=== PATIENT | male | born 1960 | race African-American/Black ===

== ENCOUNTER 2019-02-08 17:26 | Inpatient (IN) ==
[2019-02-08 18:37] LABS: Basophils % 0.6 % (0.0-0.8); Eosinophils # 0.1 10*3/uL (0.0-0.87); Eosinophils % 2.5 % (0.00-10.9); Hematocrit 28.2 VOL% (42.0-52.0); Hemoglobin 9.6 GM/DL (14.0-18.0); Immature Granulocytes % 0.2 %; Immature Granulocytes Absolute 0.01 #; Lymphocytes # 1.5 10*3/uL (1.4-4.0); Lymphocytes % 30.8 % (21.2-54.2); Mean Corpuscular Volume 84.4 FL (87-102); Mean Platelet Volume 11.2 FL (9.6-12.0); Monocytes % 10.8 % (1.7-12.7); Neutrophils % 55.1 % (38.7-73.9); Platelet Count 179 T/CUMM (130-400); Red Blood Count 3.34 MC/CUMM (3.8-5.5); Red Cell Distribution Width 11.6 % (9.3-17.3); White Blood Count 4.8 T/CUMM (4-12)
[2019-02-08 19:00] LABS: Calcium 8.9 MG/DL (8.5-10.1); Osmolality,Calculated 293.6 MOS/KG (273-304)
[2019-02-08] MEDS ORDERED: KETOROLAC 30 MG/1 ML VIAL IM STA (19:14)
[2019-02-08] MEDS ORDERED: ONDANSETRON 4 MG/2 ML VIAL IV PRN (22:16)
[2019-02-08] MEDS ORDERED: ACETAMINOPHEN 325 MG TABLET PO PRN (22:16)
[2019-02-08] MEDS ORDERED: GLUCAGON 1 MG VIAL IM PRN (22:16)
[2019-02-08] MEDS ORDERED: DEXTROSE 50% 25 GM/50 ML VIAL IV PRN (22:16)
[2019-02-08] MEDS ORDERED: ENOXAPARIN 40 MG/0.4 ML SYRINGE SUBCUT SCH (22:30)
[2019-02-09 04:23] LABS: Basophils % 0.7 % (0.0-0.8); Eosinophils # 0.1 10*3/uL (0.0-0.87); Hematocrit 25.1 VOL% (42.0-52.0); Hemoglobin 8.2 GM/DL (14.0-18.0); Immature Granulocytes % 0.2 %; Immature Granulocytes Absolute 0.01 #; Lymphocytes # 1.3 10*3/uL (1.4-4.0); Lymphocytes % 33.2 % (21.2-54.2); Mean Corpuscular HGB Conc 32.7 GM/DL (32-36); Mean Corpuscular Volume 85.4 FL (87-102); Mean Platelet Volume 11.3 FL (9.6-12.0); Neutrophils % 53.9 % (38.7-73.9); Platelet Count 161 T/CUMM (130-400); Red Blood Count 2.94 MC/CUMM (3.8-5.5); Red Cell Distribution Width 11.7 % (9.3-17.3)
[2019-02-09 05:20] LABS: Folate 10.9 NG/ML (5.4-24.0); Vitamin B12 538 PG/ML (211-911)
[2019-02-09 05:21] LABS: % Iron Saturation 27.9 % (18-50); Calcium 8.4 MG/DL (8.5-10.1); Ferritin 107.6 ng/ml (26-388); Osmolality,Calculated 292.8 MOS/KG (273-304)
[2019-02-09 05:50] LABS: Anisocytosis 1+; Platelet Estimate Adequate
[2019-02-09 06:24] LABS: Sedimentation Rate-Westergren 65 MM/HR (0-20)
[2019-02-09] MEDS: INSULIN LISPRO 100 UNIT/ML SUBCUT SCH ×4 (08:45→21:24)
[2019-02-09] MEDS: FUROSEMIDE 40 MG/4 ML VIAL IV SCH ×2 (08:45→16:46)
[2019-02-09] MEDS ORDERED: SACUBITRIL/VALSARTAN 49-51 MG TABLET PO SCH (09:30)
[2019-02-09] MEDS: carvediloL 12.5 MG TABLET PO SCH ×2 (09:56→21:25)
[2019-02-09] MEDS: CLOPIDOGREL 75 MG TABLET PO SCH (09:56)
[2019-02-09] MEDS: ASPIRIN EC 81 MG TABLET PO SCH (09:56)
[2019-02-09] MEDS: SACUBITRIL/VALSARTAN 49-51 MG TABLET PO SCH (21:25)
[2019-02-09] MEDS: ATORVASTATIN 40 MG TABLET PO SCH (21:25)
[2019-02-10 05:27] LABS: Basophils % 0.7 % (0.0-0.8); Eosinophils # 0.1 10*3/uL (0.0-0.87); Eosinophils % 2.1 % (0.00-10.9); Hematocrit 26.9 VOL% (42.0-52.0); Hemoglobin 8.9 GM/DL (14.0-18.0); Immature Granulocytes % 0.2 %; Immature Granulocytes Absolute 0.01 #; Lymphocytes # 1.5 10*3/uL (1.4-4.0); Lymphocytes % 34.7 % (21.2-54.2); Mean Corpuscular HGB Conc 33.1 GM/DL (32-36); Mean Corpuscular Volume 85.7 FL (87-102); Mean Platelet Volume 11.7 FL (9.6-12.0); Neutrophils % 53.3 % (38.7-73.9); Platelet Count 167 T/CUMM (130-400); Red Blood Count 3.14 MC/CUMM (3.8-5.5); Red Cell Distribution Width 11.9 % (9.3-17.3); White Blood Count 4.3 T/CUMM (4-12)
[2019-02-10 05:39] LABS: Calcium 8.5 MG/DL (8.5-10.1); Osmolality,Calculated 292.8 MOS/KG (273-304)
[2019-02-10] MEDS: INSULIN LISPRO 100 UNIT/ML SUBCUT SCH ×4 (08:27→21:08)
[2019-02-10] MEDS: FUROSEMIDE 40 MG/4 ML VIAL IV SCH ×2 (08:44→17:15)
[2019-02-10] MEDS: SACUBITRIL/VALSARTAN 49-51 MG TABLET PO SCH ×2 (08:50→21:09)
[2019-02-10] MEDS: ASPIRIN EC 81 MG TABLET PO SCH (08:50)
[2019-02-10] MEDS: carvediloL 12.5 MG TABLET PO SCH (08:51)
[2019-02-10] MEDS: CLOPIDOGREL 75 MG TABLET PO SCH (08:51)
[2019-02-10 10:55] LABS: Hemoglobin A1 (Alkaline) 58.9 % (96.5-98.5); Hemoglobin A2 (Alkaline) 2.4 % (1.5-3.5)
[2019-02-10] MEDS: SPIRONOLACTONE 50 MG TABLET PO SCH (12:40)
[2019-02-10 12:44] LABS: Hemoglobin S (Alkaline) 38.7 %
[2019-02-10] MEDS: carvediloL 25 MG TABLET PO SCH ×2 (12:44→21:09)
[2019-02-10] MEDS: glipiZIDE 10 MG TABLET PO SCH (17:20)
[2019-02-10] MEDS: ATORVASTATIN 40 MG TABLET PO SCH (21:09)
[2019-02-10] MEDS: FAMOTIDINE 20 MG TABLET PO SCH (21:09)
[2019-02-11 05:51] LABS: Calcium 8.9 MG/DL (8.5-10.1); Osmolality,Calculated 291.7 MOS/KG (273-304)
[2019-02-11] MEDS: INSULIN LISPRO 100 UNIT/ML SUBCUT SCH ×4 (08:22→22:19)
[2019-02-11] MEDS: ASPIRIN EC 81 MG TABLET PO SCH (08:59)
[2019-02-11] MEDS: SPIRONOLACTONE 50 MG TABLET PO SCH (08:59)
[2019-02-11] MEDS: SACUBITRIL/VALSARTAN 49-51 MG TABLET PO SCH ×2 (08:59→22:19)
[2019-02-11] MEDS: CLOPIDOGREL 75 MG TABLET PO SCH (08:59)
[2019-02-11] MEDS: glipiZIDE 10 MG TABLET PO SCH ×2 (08:59→16:31)
[2019-02-11] MEDS: carvediloL 25 MG TABLET PO SCH ×2 (08:59→22:19)
[2019-02-11] MEDS: FUROSEMIDE 40 MG/4 ML VIAL IV SCH ×2 (09:00→16:31)
[2019-02-11] MEDS ORDERED: POTASSIUM CHLORIDE 20 MEQ TABLET PO ONE (20:42)
[2019-02-11] MEDS: FAMOTIDINE 20 MG TABLET PO SCH (22:19)
[2019-02-11] MEDS: ATORVASTATIN 40 MG TABLET PO SCH (22:19)
[2019-02-12 06:40] LABS: Osmolality,Calculated 294.6 MOS/KG (273-304)
[2019-02-12 08:18] VITALS: BP 139/71
[2019-02-12] MEDS: glipiZIDE 10 MG TABLET PO SCH (08:54)
[2019-02-12] MEDS: SACUBITRIL/VALSARTAN 49-51 MG TABLET PO SCH (08:54)
[2019-02-12] MEDS: carvediloL 25 MG TABLET PO SCH (08:55)
[2019-02-12] MEDS: SPIRONOLACTONE 50 MG TABLET PO SCH (08:55)
[2019-02-12] MEDS: ASPIRIN EC 81 MG TABLET PO SCH (08:55)
[2019-02-12] MEDS: CLOPIDOGREL 75 MG TABLET PO SCH (08:55)
[2019-02-12] MEDS: FUROSEMIDE 40 MG/4 ML VIAL IV SCH (08:56)
[2019-02-12] MEDS: INSULIN LISPRO 100 UNIT/ML SUBCUT SCH ×2 (08:56→12:49)
[2019-02-12] MEDS ORDERED: amLODIPine 10 MG TABLET PO SCH (10:30)
[2019-02-12] MEDS ORDERED: FUROSEMIDE 40 MG TABLET PO SCH (16:00)
== END 2019-02-12 13:07 | disposition home or self-care (01) | DRG 291 ==
LOC: N.EDINP 17:26 → N.ED 17:26 → N.EDINP 21:27 → N.5E 21:51 → SUATTDRO 02-10 09:44
PROVIDERS: ADMIT Internal Medicine; ATTEND Hospitalist

== ENCOUNTER 2019-05-02 10:10 | Observation (INO) ==
[2019-05-02] MEDS ORDERED: AZITHROMYCIN INJ 500 MG in SODIUM CHLORIDE 0.9% 250 ML IV STA (10:54)
[2019-05-02] MEDS ORDERED: FUROSEMIDE 40 MG/4 ML VIAL IV STA (10:54)
[2019-05-02] MEDS ORDERED: KETOROLAC 30 MG/1 ML VIAL IV STA (10:54)
[2019-05-02] MEDS ORDERED: cefTRIAXone 1,000 MG in SODIUM CHLORIDE 0.9% 100 ML IV STA (10:54)
[2019-05-02] MEDS ORDERED: ORPHENADRINE 60 MG/2 ML VIAL IV STA (10:54)
[2019-05-02] MEDS ORDERED: methylPREDNISolone SOD SUC 125 MG/2 ML VIAL IV STA (10:54)
[2019-05-02] MEDS ORDERED: ONDANSETRON 4 MG/2 ML VIAL IV STA (10:54)
[2019-05-02] MEDS ORDERED: ALBUTEROL 2.5 MG/3 ML NEB RESP TX SCH (11:00)
[2019-05-02 11:18] LABS: Basophils % 0.3 % (0.0-0.8); Eosinophils # 0.1 10*3/uL (0.0-0.87); Eosinophils % 1.1 % (0.00-10.9); Hemoglobin 8.7 GM/DL (14.0-18.0); Immature Granulocytes % 0.8 %; Immature Granulocytes Absolute 0.05 #; Lymphocytes # 1.2 10*3/uL (1.4-4.0); Lymphocytes % 17.5 % (21.2-54.2); Mean Corpuscular HGB Conc 33.5 GM/DL (32-36); Mean Corpuscular Volume 84.7 FL (87-102); Mean Platelet Volume 10.9 FL (9.6-12.0); Monocytes % 7.8 % (1.7-12.7); Neutrophils % 72.5 % (38.7-73.9); Platelet Count 168 T/CUMM (130-400); Red Blood Count 3.07 MC/CUMM (3.8-5.5); Red Cell Distribution Width 12.4 % (9.3-17.3); White Blood Count 6.6 T/CUMM (4-12)
[2019-05-02 11:36] LABS: INR 0.9; Partial Thromboplastin Time 27.4 SECS (20.8-36.0)
[2019-05-02 11:48] LABS: Alanine Aminotransferase 20 U/L (16-61); Albumin 3.3 G/DL (3.4-5.0); Alkaline Phosphatase 76 U/L (45-117); Aspartate Amino Transferase 18 U/L (0-37); Blood Urea Nitrogen 23 MG/DL (7-18); Calcium 8.9 MG/DL (8.5-10.1); Estimated Glom Filtration Rate 76 ML/MIN; Glucose 201 MG/DL (74-106); Osmolality,Calculated 295.8 MOS/KG (273-304); Total Protein 7.7 G/DL (6.4-8.3); Troponin I 0.034 NG/ML (0.00-0.045)
[2019-05-02 12:25] LABS: Apearance,Urine CLEAR (Clear); Bacteria,Urine Occasional /HPF (Few); Bilirubin,Urine Negative (Negative); Blood, Urine Small mg/dL (Negative); Glucose,Urine (UA) 50 mg/dL (Negative); Ketones,Urine Negative (Negative); Nitrite,Urine Negative (Negative); Protein,Urine 30 MG/DL; RBC,Urine 2 /HPF (0-4); Urine Color Straw (Yellow); Urine Specific Gravity 1.009 (1.001-1.035); Urine Urobilinogen < 2.0 EU/DL (0.2-1.0)
[2019-05-02 12:28] LABS: Barbiturates Screen,Urine Negative (Negative); Benzodiazepines Screen,Urine Negative (Negative); Cannabinoid Screen,Urine Negative (Negative); Opiate Screen,Urine Negative (Negative); Phencyclidine Screen,Urine Negative (Negative)
[2019-05-02] MEDS ORDERED: ENOXAPARIN 120 MG/0.8 ML SYRINGE SUBCUT STA (13:02)
[2019-05-02] MEDS ORDERED: NITROGLYCERIN SL 0.4 MG TABLET SL PRN (13:36)
[2019-05-02] MEDS ORDERED: DEXTROSE 10% 250 ML BAG IV PRN (14:47)
[2019-05-02] MEDS ORDERED: GLUCAGON 1 MG VIAL IM PRN (14:47)
[2019-05-02] MEDS: INSULIN LISPRO 100 UNIT/ML SUBCUT SCH ×2 (16:34→20:54)
[2019-05-02] MEDS: glipiZIDE 10 MG TABLET PO SCH (16:34)
[2019-05-02] MEDS: ASPIRIN CHEW 81 MG TABLET PO SCH (20:55)
[2019-05-02] MEDS: amLODIPine 10 MG TABLET PO SCH (20:55)
[2019-05-02] MEDS: FUROSEMIDE 40 MG TABLET PO SCH (20:55)
[2019-05-02] MEDS: SACUBITRIL/VALSARTAN 49-51 MG TABLET PO SCH (20:55)
[2019-05-02] MEDS: LATANOPROST 0.005% OPH SOLN 2.5 ML BOTTLE RIGHT EYE SCH (21:01)
[2019-05-03] MEDS: ENOXAPARIN 120 MG/0.8 ML SYRINGE SUBCUT SCH ×2 (01:02→12:32)
[2019-05-03 05:32] LABS: Basophils % 0.1 % (0.0-0.8); Hematocrit 26.4 VOL% (42.0-52.0); Hemoglobin 8.9 GM/DL (14.0-18.0); Immature Granulocytes % 0.6 %; Immature Granulocytes Absolute 0.07 #; Lymphocytes # 0.6 10*3/uL (1.4-4.0); Lymphocytes % 5.1 % (21.2-54.2); Mean Corpuscular HGB Conc 33.7 GM/DL (32-36); Mean Corpuscular Volume 85.7 FL (87-102); Mean Platelet Volume 12.1 FL (9.6-12.0); Monocytes % 2.4 % (1.7-12.7); Neutrophils % 91.8 % (38.7-73.9); Platelet Count 193 T/CUMM (130-400); Red Blood Count 3.08 MC/CUMM (3.8-5.5); Red Cell Distribution Width 12.4 % (9.3-17.3); White Blood Count 12.5 T/CUMM (4-12)
[2019-05-03 05:54] LABS: Albumin 3.3 G/DL (3.4-5.0); Bilirubin,Total 0.6 MG/DL (0.2-1.0); Calcium 8.9 MG/DL (8.5-10.1); Osmolality,Calculated 294.4 MOS/KG (273-304); Risk Ratio 3.89; Thyroid Stimulating Hormone 0.226 uIU/ml (0.358-3.74); Total Protein 8.1 G/DL (6.4-8.3); VLDL CHOLESTEROL 9.2 MG/DL
[2019-05-03 07:00] LABS: Lymphocytes 7 % (20-55); Segmented Neutrophils 92 % (50-85); Total Cells Counted 100
[2019-05-03 07:01] LABS: Hypochromasia 1+; Platelet Estimate Adequate; Polychromasia Slight
[2019-05-03] MEDS: glipiZIDE 10 MG TABLET PO SCH ×2 (08:30→16:47)
[2019-05-03] MEDS: ATORVASTATIN 40 MG TABLET PO SCH (08:31)
[2019-05-03] MEDS: FUROSEMIDE 40 MG TABLET PO SCH ×2 (08:31→21:23)
[2019-05-03] MEDS: INSULIN LISPRO 100 UNIT/ML SUBCUT SCH ×4 (08:31→21:25)
[2019-05-03] MEDS: amLODIPine 10 MG TABLET PO SCH ×2 (08:31→21:23)
[2019-05-03] MEDS: SACUBITRIL/VALSARTAN 49-51 MG TABLET PO SCH ×2 (08:31→21:22)
[2019-05-03] MEDS: ASPIRIN CHEW 81 MG TABLET PO SCH (21:22)
[2019-05-03] MEDS: LATANOPROST 0.005% OPH SOLN 2.5 ML BOTTLE RIGHT EYE SCH (21:25)
[2019-05-04] MEDS: ENOXAPARIN 120 MG/0.8 ML SYRINGE SUBCUT SCH ×2 (00:53→13:47)
[2019-05-04] MEDS: INSULIN LISPRO 100 UNIT/ML SUBCUT SCH ×2 (08:48→13:18)
[2019-05-04] MEDS: glipiZIDE 10 MG TABLET PO SCH (08:59)
[2019-05-04] MEDS: FUROSEMIDE 40 MG TABLET PO SCH (08:59)
[2019-05-04] MEDS: ATORVASTATIN 40 MG TABLET PO SCH (08:59)
[2019-05-04] MEDS: amLODIPine 10 MG TABLET PO SCH (09:00)
[2019-05-04] MEDS ORDERED: CLOPIDOGREL 75 MG TABLET PO SCH (09:00)
[2019-05-04] MEDS: SACUBITRIL/VALSARTAN 49-51 MG TABLET PO SCH (09:00)
[2019-05-04 12:46] VITALS: BP 142/82
[2019-05-04] MEDS ORDERED: MAGNESIUM HYDROXIDE SUSP 30 ML UDCUP PO ONE (12:57)
[2019-05-04] MEDS ORDERED: SIMETHICONE CHEW 80 MG TABLET PO PRN (12:58)
== END 2019-05-04 17:32 | disposition home or self-care (01) ==
LOC: N.EDINP 10:10 → N.ED 10:10 → SUATTDRO 13:26 → N.EDINP 14:13 → N.2W 14:49 → N.TELES 18:03
PROVIDERS: ADMIT Internal Medicine; ATTEND Phlebology

== ENCOUNTER 2020-10-19 07:16 | Inpatient (IN) ==
[2020-10-19 08:00] LABS: Basophils % 0.4 % (0.0-0.8); Eosinophils % 0.2 % (0.00-10.9); Hematocrit 27.3 VOL% (42.0-52.0); Hemoglobin 9.2 GM/DL (14.0-18.0); Immature Granulocytes % 0.4 %; Immature Granulocytes Absolute 0.03 #; Lymphocytes # 1.1 10*3/uL (1.4-4.0); Lymphocytes % 13.5 % (21.2-54.2); Mean Corpuscular HGB Conc 33.7 GM/DL (32-36); Mean Corpuscular Volume 85.3 FL (87-102); Mean Platelet Volume 11.5 FL (9.6-12.0); Monocytes % 5.7 % (1.7-12.7); Neutrophils % 79.8 % (38.7-73.9); Platelet Count 147 T/CUMM (130-400); Red Cell Distribution Width 12.1 % (9.3-17.3); White Blood Count 8.2 T/CUMM (4-12)
[2020-10-19 08:19] LABS: Albumin 3.4 G/DL (3.4-5.0); Bilirubin,Total 0.8 MG/DL (0.2-1.0); Calcium 9.1 MG/DL (8.5-10.1); Osmolality,Calculated 287.5 MOS/KG (273-304); Potassium 3.8 MMOL/L (3.5-5.1); Total Protein 7.6 G/DL (6.4-8.2)
[2020-10-19] MEDS ORDERED: METOPROLOL TARTRATE 5 MG/5 ML VIAL IV STA (08:28)
[2020-10-19] MEDS ORDERED: ASPIRIN 325 MG TABLET ONE (08:30)
[2020-10-19 08:32] LABS: PT Patient Result 11.1 SECS (10.5-12.0); Partial Thromboplastin Time 28.5 SECS (23.9-33.8)
[2020-10-19] MEDS ORDERED: BISACODYL 5 MG TABLET PO PRN (09:10)
[2020-10-19] MEDS ORDERED: CALCIUM CARBONATE CHEW 500 MG TABLET PO PRN (09:10)
[2020-10-19] MEDS ORDERED: ZALEPLON 5 MG CAPSULE PO PRN (09:10)
[2020-10-19] MEDS ORDERED: MORPHINE 4 MG/1 ML VIAL IV PRN (09:10)
[2020-10-19] MEDS ORDERED: SIMETHICONE CHEW 125 MG TABLET PO PRN (09:10)
[2020-10-19] MEDS ORDERED: diphenhydrAMINE CAP 25 MG CAPSULE PO PRN (09:10)
[2020-10-19] MEDS ORDERED: MAGNESIUM SULF RIDER 2 GM/50 ML PREMIX IV PRN (09:10)
[2020-10-19] MEDS ORDERED: POTASSIUM CHLORIDE 20 MEQ TABLET PO PRN (09:10)
[2020-10-19] MEDS ORDERED: ONDANSETRON 4 MG/2 ML VIAL IV PRN (09:10)
[2020-10-19] MEDS ORDERED: guaiFENesin/DM ER 600-30 MG TABLET PO PRN (09:10)
[2020-10-19] MEDS ORDERED: LACTULOSE 20 GM/30 ML UDCUP PO PRN (09:10)
[2020-10-19] MEDS ORDERED: MAGNESIUM SULF RIDER 4 GM/100 ML PREMIX IV PRN (09:10)
[2020-10-19] MEDS ORDERED: ALUMINUM/MAGNES/SIMETH MAX STR 30 ML UDCUP PO PRN (09:10)
[2020-10-19] MEDS ORDERED: hydrALAZINE 20 MG/1 ML VIAL IV PRN (09:10)
[2020-10-19] MEDS ORDERED: ACETAMINOPHEN 325 MG TABLET PO PRN (09:10)
[2020-10-19] MEDS ORDERED: SODIUM CHLORIDE 0.45% 500 ML IV SCH (09:30)
[2020-10-19] MEDS ORDERED: DEXTROSE 50% 25 GM/50 ML VIAL IV PRN (09:41)
[2020-10-19] MEDS ORDERED: GLUCAGON 1 MG VIAL IM PRN (09:41)
[2020-10-19] MEDS ORDERED: NITROGLYCERIN 0.3 MG SL PRN (09:41)
[2020-10-19 10:56] LABS: Bilirubin,Urine Negative (Negative); Blood, Urine Small mg/dL (Negative); Glucose,Urine (UA) 50 mg/dL (Negative); Ketones,Urine Negative (Negative); Mucus,Urine Occasional /LPF (Occasional); Nitrite,Urine Negative (Negative); Protein,Urine 100 MG/DL; RBC,Urine 1 /HPF (0-4); Urine Appearance CLEAR (Clear); Urine Color Yellow (Yellow); Urine Specific Gravity 1.009 (1.001-1.035); Urine Urobilinogen < 2.0 EU/DL (0.2-1.0)
[2020-10-19 10:57] LABS: Barbiturates Screen,Urine Negative (Negative); Benzodiazepines Screen,Urine Negative (Negative); Cannabinoid Screen,Urine Negative (Negative); Opiate Screen,Urine Negative (Negative); Phencyclidine Screen,Urine Negative (Negative)
[2020-10-19] MEDS: INSULIN LISPRO 100 UNIT/ML SUBCUT SCH ×3 (13:34→22:01)
[2020-10-19] MEDS: GABAPENTIN 300 MG CAPSULE PO SCH ×2 (15:16→21:58)
[2020-10-19] MEDS ORDERED: NITROGLYCERIN SL 0.4 MG TABLET SL PRN (15:19)
[2020-10-19] MEDS: ENOXAPARIN 40 MG/0.4 ML SYRINGE SUBCUT SCH (17:08)
[2020-10-19] MEDS: NITROGLYCERIN 2% OINT 1 INCH/GM PACK TOP SCH ×2 (17:08→17:34)
[2020-10-19] MEDS ORDERED: NITROGLYCERIN 2% OINT 1 INCH/GM PACK TOP SCH (18:00)
[2020-10-19] MEDS ORDERED: APIXABAN 5 MG TABLET PO SCH (21:00)
[2020-10-19] MEDS: glipiZIDE 10 MG TABLET PO SCH (21:57)
[2020-10-19] MEDS: carvediloL 25 MG TABLET PO SCH (21:58)
[2020-10-19] MEDS: FUROSEMIDE 40 MG TABLET PO SCH (21:58)
[2020-10-19] MEDS: LATANOPROST 0.005% OPH SOLN 2.5 ML BOTTLE RIGHT EYE SCH (21:59)
[2020-10-20] MEDS: NITROGLYCERIN 2% OINT 1 INCH/GM PACK TOP SCH ×4 (00:26→18:48)
[2020-10-20 05:39] LABS: Basophils % 0.4 % (0.0-0.8); Eosinophils % 0.1 % (0.00-10.9); Hematocrit 26.4 VOL% (42.0-52.0); Hemoglobin 8.8 GM/DL (14.0-18.0); Immature Granulocytes % 0.4 %; Immature Granulocytes Absolute 0.03 #; Lymphocytes # 1.2 10*3/uL (1.4-4.0); Lymphocytes % 16.3 % (21.2-54.2); Mean Corpuscular HGB Conc 33.3 GM/DL (32-36); Mean Corpuscular Volume 86.3 FL (87-102); Monocytes % 8.1 % (1.7-12.7); Neutrophils % 74.7 % (38.7-73.9); Platelet Count 155 T/CUMM (130-400); Red Blood Count 3.06 MC/CUMM (3.8-5.5); Red Cell Distribution Width 11.9 % (9.3-17.3); White Blood Count 7.1 T/CUMM (4-12)
[2020-10-20 06:04] LABS: Osmolality,Calculated 287.3 MOS/KG (273-304); Potassium 3.7 MMOL/L (3.5-5.1)
[2020-10-20] MEDS ORDERED: LOSARTAN 50 MG TABLET PO SCH (09:00)
[2020-10-20] MEDS: FUROSEMIDE 40 MG TABLET PO SCH ×2 (09:11→21:44)
[2020-10-20] MEDS: POTASSIUM CHLORIDE 10 MEQ TABLET PO SCH (09:11)
[2020-10-20] MEDS: PANTOPRAZOLE 40 MG TABLET PO SCH (09:11)
[2020-10-20] MEDS: GABAPENTIN 300 MG CAPSULE PO SCH ×3 (09:12→21:44)
[2020-10-20] MEDS: ATORVASTATIN 40 MG TABLET PO SCH (09:12)
[2020-10-20] MEDS: INSULIN LISPRO 100 UNIT/ML SUBCUT SCH ×4 (09:14→21:45)
[2020-10-20] MEDS: carvediloL 25 MG TABLET PO SCH ×2 (09:14→21:44)
[2020-10-20] MEDS: glipiZIDE 10 MG TABLET PO SCH ×2 (10:02→21:45)
[2020-10-20 10:13] LABS: ABG Base Excess 4.2 MMOL/L (-2.5-2.5); ABG HCO3 28.7 MMOL/L (20-26); ABG Oxygen Saturation 87.1 % (95-100); ABG PCO2 42.7 MM HG (35-48); ABG PH 7.445 (7.35-7.45); ABG PO2 54.8 MM HG (80-95)
[2020-10-20] MEDS ORDERED: DIAZEPAM 5 MG TABLET PO ONE (11:17)
[2020-10-20] MEDS ORDERED: diphenhydrAMINE CAP 25 MG CAPSULE PO ONE (11:17)
[2020-10-20] MEDS ORDERED: LIDOCAINE 1% 20 ML VIAL ONE (11:19)
[2020-10-20] MEDS ORDERED: HEPARIN/NACL 0.9% 2 UNITS/ML 2,000 UNIT/1,000 ML BAG IV ONE (11:19)
[2020-10-20] MEDS: SODIUM CHLORIDE 0.45% 1,000 ML IV SCH ×2 (11:45→17:27)
[2020-10-20] MEDS ORDERED: HYDROmorphone 2 MG/1 ML VIAL ONE (11:45)
[2020-10-20] MEDS ORDERED: MIDAZOLAM 2 MG/2 ML VIAL ONE (11:45)
[2020-10-20] MEDS ORDERED: diphenhydrAMINE 50 MG/1 ML VIAL ONE (12:16)
[2020-10-20] MEDS ORDERED: BIVALIRUDIN 250 MG VIAL IV ONE (12:40)
[2020-10-20] MEDS ORDERED: TICAGRELOR 90 MG TABLET ONE (13:00)
[2020-10-20] MEDS ORDERED: GLUCAGON 1 MG VIAL IM PRN (13:17)
[2020-10-20] MEDS ORDERED: DEXTROSE 50% 25 GM/50 ML VIAL IV PRN (13:17)
[2020-10-20] MEDS ORDERED: ALPRAZolam 0.25 MG TABLET PO PRN (16:50)
[2020-10-20] MEDS: ENOXAPARIN 40 MG/0.4 ML SYRINGE SUBCUT SCH (18:47)
[2020-10-20] MEDS: TICAGRELOR 90 MG TABLET PO SCH (21:44)
[2020-10-20] MEDS: LATANOPROST 0.005% OPH SOLN 2.5 ML BOTTLE RIGHT EYE SCH (21:45)
[2020-10-21] MEDS: NITROGLYCERIN 2% OINT 1 INCH/GM PACK TOP SCH ×4 (00:08→18:05)
[2020-10-21] MEDS: SODIUM CHLORIDE 0.45% 1,000 ML IV SCH ×3 (00:10→12:14)
[2020-10-21 06:46] LABS: Basophils % 0.5 % (0.0-0.8); Eosinophils # 0.1 10*3/uL (0.0-0.87); Eosinophils % 1.6 % (0.00-10.9); Hematocrit 24.5 VOL% (42.0-52.0); Immature Granulocytes % 0.4 %; Immature Granulocytes Absolute 0.02 #; Lymphocytes # 1.1 10*3/uL (1.4-4.0); Lymphocytes % 19.6 % (21.2-54.2); Mean Corpuscular HGB Conc 32.7 GM/DL (32-36); Mean Corpuscular Volume 87.2 FL (87-102); Mean Platelet Volume 11.8 FL (9.6-12.0); Monocytes % 10.6 % (1.7-12.7); Neutrophils % 67.3 % (38.7-73.9); Platelet Count 139 T/CUMM (130-400); Red Blood Count 2.81 MC/CUMM (3.8-5.5); Red Cell Distribution Width 11.9 % (9.3-17.3); White Blood Count 5.6 T/CUMM (4-12)
[2020-10-21 06:53] LABS: Calcium 8.2 MG/DL (8.5-10.1); Osmolality,Calculated 292.4 MOS/KG (273-304); Potassium 3.9 MMOL/L (3.5-5.1)
[2020-10-21 07:05] LABS: Hypochromasia 1+; Microcytosis 1+
[2020-10-21] MEDS: glipiZIDE 10 MG TABLET PO SCH ×2 (09:36→21:18)
[2020-10-21] MEDS: GABAPENTIN 300 MG CAPSULE PO SCH ×3 (09:36→21:18)
[2020-10-21] MEDS: POTASSIUM CHLORIDE 10 MEQ TABLET PO SCH (09:36)
[2020-10-21] MEDS: TICAGRELOR 90 MG TABLET PO SCH ×2 (09:36→21:18)
[2020-10-21] MEDS: FUROSEMIDE 40 MG TABLET PO SCH ×2 (09:37→21:18)
[2020-10-21] MEDS: ATORVASTATIN 40 MG TABLET PO SCH (09:37)
[2020-10-21] MEDS: ASPIRIN EC 81 MG TABLET PO SCH (09:37)
[2020-10-21] MEDS: PANTOPRAZOLE 40 MG TABLET PO SCH (09:38)
[2020-10-21] MEDS: INSULIN LISPRO 100 UNIT/ML SUBCUT SCH ×4 (09:38→21:19)
[2020-10-21] MEDS: carvediloL 25 MG TABLET PO SCH ×2 (09:38→21:18)
[2020-10-21] MEDS: ENOXAPARIN 40 MG/0.4 ML SYRINGE SUBCUT SCH (17:30)
[2020-10-21] MEDS: LATANOPROST 0.005% OPH SOLN 2.5 ML BOTTLE RIGHT EYE SCH (21:18)
[2020-10-22] MEDS: NITROGLYCERIN 2% OINT 1 INCH/GM PACK TOP SCH ×5 (00:21→23:30)
[2020-10-22 04:08] LABS: Basophils % 0.6 % (0.0-0.8); Eosinophils # 0.1 10*3/uL (0.0-0.87); Eosinophils % 1.9 % (0.00-10.9); Hematocrit 24.8 VOL% (42.0-52.0); Hemoglobin 8.4 GM/DL (14.0-18.0); Immature Granulocytes % 0.2 %; Immature Granulocytes Absolute 0.01 #; Lymphocytes # 1.2 10*3/uL (1.4-4.0); Lymphocytes % 22.3 % (21.2-54.2); Mean Corpuscular HGB Conc 33.9 GM/DL (32-36); Mean Corpuscular Volume 85.5 FL (87-102); Mean Platelet Volume 12.2 FL (9.6-12.0); Monocytes % 10.4 % (1.7-12.7); Neutrophils % 64.6 % (38.7-73.9); Platelet Count 160 T/CUMM (130-400); Red Cell Distribution Width 11.9 % (9.3-17.3); White Blood Count 5.4 T/CUMM (4-12)
[2020-10-22 04:32] LABS: Calcium 8.8 MG/DL (8.5-10.1); Osmolality,Calculated 290.4 MOS/KG (273-304); Potassium 3.7 MMOL/L (3.5-5.1)
[2020-10-22] MEDS: INSULIN LISPRO 100 UNIT/ML SUBCUT SCH ×4 (10:03→20:36)
[2020-10-22] MEDS: POTASSIUM CHLORIDE 10 MEQ TABLET PO SCH (11:27)
[2020-10-22] MEDS: glipiZIDE 10 MG TABLET PO SCH ×2 (11:27→20:35)
[2020-10-22] MEDS: carvediloL 25 MG TABLET PO SCH ×2 (11:27→20:35)
[2020-10-22] MEDS: FUROSEMIDE 40 MG TABLET PO SCH ×2 (11:28→20:36)
[2020-10-22] MEDS: ASPIRIN EC 81 MG TABLET PO SCH (11:29)
[2020-10-22] MEDS: TICAGRELOR 90 MG TABLET PO SCH ×2 (11:29→20:35)
[2020-10-22] MEDS: GABAPENTIN 300 MG CAPSULE PO SCH ×3 (11:30→20:35)
[2020-10-22] MEDS: PANTOPRAZOLE 40 MG TABLET PO SCH (11:31)
[2020-10-22] MEDS: ATORVASTATIN 40 MG TABLET PO SCH (11:31)
[2020-10-22] MEDS: ENOXAPARIN 40 MG/0.4 ML SYRINGE SUBCUT SCH (17:17)
[2020-10-22] MEDS: LATANOPROST 0.005% OPH SOLN 2.5 ML BOTTLE RIGHT EYE SCH (20:36)
[2020-10-23 05:11] LABS: Basophils % 0.3 % (0.0-0.8); Eosinophils # 0.1 10*3/uL (0.0-0.87); Eosinophils % 1.5 % (0.00-10.9); Hematocrit 24.4 VOL% (42.0-52.0); Immature Granulocytes % 0.3 %; Immature Granulocytes Absolute 0.02 #; Lymphocytes # 0.8 10*3/uL (1.4-4.0); Lymphocytes % 13.9 % (21.2-54.2); Mean Corpuscular HGB Conc 32.8 GM/DL (32-36); Mean Corpuscular Volume 87.8 FL (87-102); Mean Platelet Volume 11.7 FL (9.6-12.0); Monocytes % 7.5 % (1.7-12.7); Neutrophils % 76.5 % (38.7-73.9); Platelet Count 188 T/CUMM (130-400); Red Blood Count 2.78 MC/CUMM (3.8-5.5); Red Cell Distribution Width 11.9 % (9.3-17.3); White Blood Count 5.8 T/CUMM (4-12)
[2020-10-23 05:50] LABS: % Iron Saturation 24.6 % (18-50); Calcium 8.6 MG/DL (8.5-10.1); Osmolality,Calculated 301.4 MOS/KG (273-304); Potassium 4.2 MMOL/L (3.5-5.1)
[2020-10-23] MEDS: NITROGLYCERIN 2% OINT 1 INCH/GM PACK TOP SCH (06:14)
[2020-10-23 07:40] VITALS: BP 151/97
[2020-10-23] MEDS: INSULIN LISPRO 100 UNIT/ML SUBCUT SCH (10:26)
[2020-10-23] MEDS: ASPIRIN EC 81 MG TABLET PO SCH (10:27)
[2020-10-23] MEDS: TICAGRELOR 90 MG TABLET PO SCH (10:27)
[2020-10-23] MEDS: PANTOPRAZOLE 40 MG TABLET PO SCH (10:28)
[2020-10-23] MEDS: POTASSIUM CHLORIDE 10 MEQ TABLET PO SCH (10:28)
[2020-10-23] MEDS: FUROSEMIDE 40 MG TABLET PO SCH (10:29)
[2020-10-23] MEDS: glipiZIDE 10 MG TABLET PO SCH (10:40)
[2020-10-23] MEDS: ATORVASTATIN 40 MG TABLET PO SCH (10:51)
[2020-10-23] MEDS: carvediloL 25 MG TABLET PO SCH (10:52)
[2020-10-23] MEDS: GABAPENTIN 300 MG CAPSULE PO SCH (10:52)
== END 2020-10-23 14:15 | disposition home or self-care (01) | DRG 174 ==
LOC: N.EDINP 07:16 → N.ED 07:16 → N.TELEN 12:56
PROVIDERS: ADMIT Internal Medicine Cardiovascular Disease; ATTEND Internal Medicine Cardiovascular Disease
PROC: CLCCHCL (ICD-10-PCS; 2020-10-20 12:15)